=== PATIENT | male | born 1965 | race Caucasian/White ===

== ENCOUNTER → 2021-01-03 07:47 | Outpatient (CLI) | payer BC, SELFPAY ==
--- NOTE | ~2021-01-03 | MR_ITS ---
EXAMINATION: CT shoulder RT w con, Additional imaging MR DATE: 01/03/2021 10:10 INDICATION: Strain of tendon of the right rotator cuff. TECHNIQUE: 1. Magnetic resonance imaging (MRI) of the right shoulder was attempted following intra-articular lorena olinium contrast injection and without intravenous contrast. Details of the glenohumeral joint inject ion have been dictated separately. Sequences included T1-weighted localizer images as well as axial T2-weighted FS FSE and T1-weighted FS FSE. At this point the study was terminated at the patient's re quest due to claustrophobia. The coronal oblique, sagittal and ABER (abduction external rotation) sandy ging of the shoulder was not obtained. 2. Following termination of the MR examination, the patient was transferred to the CT scanner and hig h resolution computed tomography (CT) of the right shoulder was performed without intravenous contras t but with intra-articular iodinated contrast which is a component of the standard without intra mixt ure utilized for the attempted MR arthrogram. Additional sagittal and coronal reconstructions were pe rformed. Automated exposure control and iterative reconstruction technique were employed. The dose-le ngth product was 632.13 mGy-cm. COMPARISON: None FINDINGS: Evaluation on the MR portion of the examination is limited by the absence of sagittal, coronal and AB ER images. The CT imaging is limited due to relatively small amount of residual intra-articular contr ast due to resorption during of the contrast occurring during the MR portion of the examination and t he intervening time prior to CT imaging. Interpretation reflects combination of findings on both the MR and CT images. Alignment is normal. Normal variant unfused meso acromial os. Minimal acromioclavicular osteoarthriti s. Normal marrow signal with no evident reactive edema, fracture or pathologic marrow replacing proce ss. Normal anterosuperior sublingual foramen. Contrast extends into a linear superior, anterior to po sterior tear of the glenoid labrum (SLAP tear) beginning anteriorly at the 1:00 position and extendin g posteriorly to the 9:00 position. Glenohumeral cartilage appears normal. There is suggestion of mil d infraspinatus and supraspinatus tendinopathy without definitive tear although sensitivity for small tear is limited due to the premature termination of this study with absence of multiple planes of im aging. The subscapularis and teres minor tendons appear normal with evaluation only minimally limited as these tendons are suspected primarily on the obtained axial imaging. No asymmetric muscular atrop hy of the right rotator cuff or shoulder girdle. Long head of the biceps tendon appears normal with s ensitivity decreased along the intra-articular portion of the tendon. No abnormal fluid signal in the subacromial/subdeltoid bursa to suggest bursitis. Visualized portions of the right lung are clear. IMPRESSION: 1. Significantly limited study due to early termination of the MR portion of the study due to claustr ophobia prior to obtaining sagittal, coronal and lower ABER imaging. Subsequent attempted rescue CT a rthrogram limited by relative paucity of residual intra-articular contrast. 2. SLAP tear of the superior to posterior glenoid labrum. 3. Mild supraspinatus and infraspinatus tendinopathy without discrete rotator cuff tear although sens itivity for small mild tears both tendons is significantly limited by the incomplete imaging as susi led above. 4. Normal variant unfused meso acromial os acromiale. Reviewed, dictated and finalized at location [facility]. IMPRESSION: 1. Significantly limited study due to early termination of the MR portion of th e study due to claustrophobia prior to obtaining sagittal, coronal and lower AB ER i
--- NOTE | ~2021-01-03 | XR_ITS ---
XR fl inj shoulder RT - MR/CT DATE: 01/03/2021 08:44 INDICATION: Right shoulder pain TECHNIQUE: The purpose of the procedure, technique and potential complications were discussed with th e patient. The patient verbalized understanding and gave consent. Timeout procedure confirmed proper patient, procedure and side. The skin anterior to the right shoulder was prepared with sterile Betadine. Sterile drape was applied . 1% lidocaine local anesthetic was administered to the skin and underlying subcutaneous tissues. A spinal needle was introduced percutaneously into the glenohumeral joint space using fluoroscopy for guidance. 12 cc mixed diluted gadolinium and Omnipaque and local anesthetic was injected into the joint space u nder fluoroscopic guidance to confirm intra-articular position. A single spot AP exposure was made to confirm intra-articular position of the contrast material. The patient tolerated the procedure well. No complication was noted. IMPRESSION: Successful percutaneous intra-articular injection of mixed gadolinium/Omnipaque contrast material at the right glenohumeral joint Reviewed, dictated and finalized at [facility]. Reviewed, dictated and finalized at location [facility]. IMPRESSION: Successful percutaneous intra-articular injection of mixed gadolini um/Omnipaque contrast material at the right glenohumeral joint
== END ==
PROVIDERS: PCP Internal Medicine
DX: S46.011A Strain of muscle(s) and tendon(s) of the rotator cuff of right shoulder, initial encounter (principal); S43.431A Superior glenoid labrum lesion of right shoulder, initial encounter; X58.XXXA Exposure to other specified factors, initial encounter
CPT/HCPCS: 23350; 73201; 77002; Q9966

== ENCOUNTER 2022-02-28 15:39 | Outpatient (CLI) | payer BC, SELFPAY ==
[2022-02-28 18:47] LABS: Basophils Absolute Auto 0.1 K/mm3 (0.0-0.1); Basophils Percent Auto 0.8 % (0.2-1.2); Eosinophils Absolute Auto 0.3 K/mm3 (0-0.3); Eosinophils Percent Auto 2.4 % (0-4.4); Hematocrit 56.5 % (42.0-52.0); Hemoglobin 18.8 g/dL (14.0-18.0); Immature Granulocyte Absolute 0.04 K/mm3 (0.00-0.031); Immature Granulocyte Percent A 0.3 % (0-0.5); Lymphocytes Absolute Auto 2.75 K/mm3 (0.9-3.2); Lymphocytes Percent Auto 23.1 % (18.3-44.2); Mean Corpuscular HGB Conc 33.3 g/dl (32-36); Mean Corpuscular Hemoglobin 29.5 pg (26-34); Mean Corpuscular Volume 88.6 fl (80-100); Mean Platelet Volume 10.3 fl (7.4-10.4); Monocytes Absolute Auto 1.1 K/mm3 (0.1-0.6); Monocytes Percent Auto 9.4 % (2.6-8.5); Neutrophils Absolute Auto 7.6 K/mm3 (1.3-6.7); Platelet Count Result 244 k/mm3 (150-375); Red Blood Count 6.38 M/mm3 (4.6-6.20); Red Cell Distribution Width 15.2 % (11.5-14.5); White Blood Count 11.9 K/mm3 (4.5-10.0)
[2022-02-28 19:04] LABS: Alanine Aminotransferase 36 U/L (6-50); Albumin Level 4.6 g/dL (3.5-5.1); Alkaline Phosphatase 101 U/L (38-126); Anion Gap 13 mmol/L (8-16); Aspartate Amino Transferase 49 U/L (17-59); Bilirubin,Total 0.7 mg/dL (0.2-1.3); Blood Urea Nitrogen 21 mg/dL (9-20); Calcium 10.1 mg/dL (8.4-10.2); Carbon Dioxide 27 mmol/L (22-30); Chloride 101 mmol/L (98-107); Cholesterol 145 mg/dL (0-200); Estimated Glomerular Filt Rate > 60; Glucose 137 mg/dL (65-110); HDL Direct 34 mg/dL; Potassium 4.2 mmol/L (3.4-5.0); Sodium 141 mmol/L (137-145); Triglycerides 204 mg/dL (<150)
[2022-02-28 19:16] LABS: LDL Cholesterol Direct 79 mg/dL
[2022-02-28 19:18] LABS: Creatinine Urine 199.8 mg/dL
[2022-02-28 19:28] LABS: Prostate Specific Antigen 1.3 ng/mL (< OR = 4.0)
[2022-02-28 19:31] LABS: Hemoglobin A1C 7.5 % (<5.7)
[2022-02-28 19:51] LABS: MALB Creatinine Ratio 166.6 mg/g (0-30); Microalbumin Urine Random 332.8 mg/L (0-16.7)
== END 2022-02-28 15:40 | disposition home or self-care (01) ==
LOC: ANHGOSHLAB 15:41
PROVIDERS: PCP Internal Medicine; Visit Provider Internal Medicine
DX: E11.51 Type 2 diabetes mellitus with diabetic peripheral angiopathy without gangrene (principal); Z12.5 Encounter for screening for malignant neoplasm of prostate
CPT/HCPCS: 36415; 80053; 80061; 82043; 83036; 84153; 85025; G0103

== ENCOUNTER 2024-09-19 00:50 | Day surgery (SDC) | payer BC, SELFPAY ==
[2024-09-15 08:53] VITALS: BMI 29.3
--- OUTSIDE RECORDS SUMMARY | 2024-09-19 00:53 | XMS_ITS | Encounter Summary ---
Author Organization [facility] Address [address] [place] [address] Phone Care Team Providers Care Preparation Department Supervisor Name Role Phone Jet Beck MD Primary Care Provider [phone] Jim Archer DO Primary Care Provider Reason for Visit * Reason Comments Medication Refill Encounter Details Date Type Department Care Team (Late st Contact Info) Description 11/06/2021 Refill [facility] [address] [place] [id number] Jet Beck MD [address] [id number] Medication Refill Social History Tobacco Use Types Packs/Day Years Used Date Smoking Tobacco: Former Cigarettes 1 30 Smokeless Tobacco: Never Alcohol Use Standard Drinks/Week Comments Never 0 (1 standard drink = 0.6 oz pur e alcohol) AUDIT-C Answer Date Recorded Frequency of Alcohol Consumption Never 12/19/2018 Average Number of Drinks Not on file 019 Frequency of Binge Drinking Not on file 11/24 PHQ-2 Answer Date Recorded Total Score - Questions 1-9 0 01/24 Sex and Gender Information Value Date Recorded Sex Assigned at Not on file Legal Sex Male 11:07 PM CDT Gender Identity Not on file Sexual Orientation Not on file documented as of this encounter Miscellaneous Notes * Telephone Encounter - Sonali Cardenas RMA - 11/08/2021 1:02 PM CDT lvm * Telephone Encounter - Gisela Church RN - 11/07/2021 1:44 PM CDT Medication failed the protocol, provider to review and approve the medication order if appropriate. Requested Prescriptions Pending Prescriptions Disp Refills atorvastatin (LIPITOR) 40 MG Tablet [Pharmacy Med Name: Atorvastatin Calcium 40 MG Oral Tablet] 90 Tablet 0 Sig: Take 1 tablet by mouth once daily Hmg CoA Reductase Inhibitors Protocol Failed - 11/06/2021 3:53 PM Failed - Lipid panel in past 12 months LDL Date Value Ref Range Status 05/10/2021 50 0 - 130 mg/dL Final Passed - Visit with relevant provider in past 12 months or upcoming 90 days Recent Visits Date Type Provider Dept 05/10/21 Office Visit Jet Beck MD [facility] 04/14/21 Office Visit Marika Alejandra APRN, CNP [facility] 04/08/21 Office Visit Marika Alejandra APRN, [facility] 04/05/21 Office Visit Marika Alejandra APRN, [facility] 02/18/21 Office Visit Jet Beck MD [facility] Showing recent visits within past 365 days and meeting all other requirements Future Appointments No visits were found meeting these conditions. Showing future appointments within next 90 days and meeting all other requirements documented in this encounter Plan of Treatment Not on file documented as of this encounter Visit Diagnoses Diagnosis Pure hypercholesterolemia documented in this encounter Additional Health Concerns Assessment Noted Time PHQ-9 Depression Total Score: 0 02/19/20 8:03 AM CDT documented as of this encounter Care Teams Preparation Department Supervisor Relationship Specialty Start Date End Date Jet Beck MD [address] [address] PCP - General Family Medicine 02/18/21 03/17/22 Jim Archer DO [facility] [facility] [place] [address] PCP - General Internal Medicine 03/18/22 documented as of this encounter
--- OUTSIDE RECORDS SUMMARY | 2024-09-19 00:53 | XMS_ITS | Referral Summary ---
Author Organization [facility] Building A Address [address] [place] [address] Care Team Providers Care Tube Depatcher Name Role Phone Ana Talavera MD Primary Care Provider Encounters Date Type Department Care Team Description 09/12/2024 Orders Only [place] [facility] [address] [place] [phone] Primitivo Martinez MD PVD (peripheral vascular disease) (Primary Dx); Bilateral carotid bruits 09/12/2024 10:00 AM CDT Office Visit [place] [facility] [address] [place] [phone] Ricardo De La Vega NP Peripheral vascular disease (Primary Dx); PSVT (paroxysmal supraventricular tachycardia) (CMS/HCC) (HCC); Primary hypertension; Mixed hyperlipidemia 09/12/2024 9:00 AM CDT Ancillary Procedure [place] [facility] [address] [place] [phone] Atherosclerosis of [place] arteries of extremities with intermittent claudication, bilateral legs 09/05/2024 Telephone [facility] G[facility] at [place] [address] [place] [address] Jagruti Espinal MA from Last 3 Months Allergies Active Allergy Reactions Criticality Noted Date Comments Other Rash Medium 01/03/2018 metal Medications blood glucose diagnostic (ONETOUCH VERIO) strip Use to test blood sugars 3 times daily. 100 each 019 Active Additional Information Patient not taking.Reported on 09/12/2024 lancets (ONETOUCH DELICA LANCETS) 30 gauge misc Use to test blood sugars 3 times daily. 100 each 019 Active glimepiride (AMARYL) 2 mg tablet Take 1 tablet (2 mg total) by mouth 2 (two) times a day 60 tablet Active Additional Information Patient not taking.Reported on 09/12/2024 insulin degludec (TRESIBA) 200 unit/mL (3 mL) insulin penIndications:Terri betes mellitus without complication (HCC) Inject 44 units up to 60 units max dose under skin once daily. 3 pen Active famotidine (PEPCID) 20 mg tablet Take 1 tablet (20 mg total) by mouth 2 (two) times a day Active atorvastatin (LIPITOR) 40 mg tablet Take 1 tablet (40 mg total) by mouth daily Active NovoFine Plus 32 gauge x 1/6 needle USE 1 NEW PEN NEEDLE TWICE DAILY WITH INSULIN 021 Active aspirin 81 mg enteric coated tablet Take 1 tablet (81 mg total) by mouth daily Active metFORMIN XR (GLUCOPHAGE XR) 500 mg 24 hr tabletIndications: Uncontrolled type 2 diabetes mellitus with hyperosmolarity without coma, with long-term current use of insulin (HCC) Take 2 tablets by oral route in AM and 2 tabs in PM. 120 tablet 023 Active metoprolol (LOPRESSOR) 100 mg tablet Take 1 tablet by mouth twice daily 180 tablet 3 024 Active tirzepatide (Mounjaro) 10 mg/0.5 mL pen injectorIndication s:type 2 diabetes mellitus Inject 0.5 mL (10 mg total) under the skin every 7 days Active lisinopriL (PRINIVIL,ZESTRIL) 40 mg tablet TAKE 1 TABLET DAILY 90 tablet 3 025 Active lisinopriL (PRINIVIL,ZESTRIL) 40 mg tablet Take 1 tablet (40 mg total) by mouth daily 90 tablet 3 024 2024 Discontinued Active Problems Problem Noted Date Diagnosed Date Mixed hyperlipidemia 01/18/2024 Vitamin D deficiency 11/25/2022 Sorethroat 07/17/2018 Assessment & Plan (07/17/2018 4:41 PM OPHTHALMOLOGIST RETINA SPECIALIST): Patient complains of sore throat for few days strep test was positive patient is given Augmentin 875 twice a day x7 days. Also supportive care is recommended meaning throat lozenges Tylenol. Diabetes mellitus without complication 9 Assessment & Plan (07/17/2018 4:43 PM OPHTHALMOLOGIST RETINA SPECIALIST): Diabetes not controlled will get a hemoglobin HgbA1c is now due. Patient's following his glucometer reports improvement in his glucose levels. Peripheral vascular disease 01/07/2018 Assessment & Plan (07/09/2018 1:59 PM OPHTHALMOLOGIST RETINA SPECIALIST): Patient advised me saw his intervention media sales representative this morning regarding his PA D is advised continue use his walking is exercise method to keep his vascular maximum potential. Patient is a numbness in his feet secondary to PVD. Assessment & Plan (04/06/2018 4:24 PM CDT): Peripheral vascular disease managed by Cardiology . Patient's stents in his legs. He did help him Assessment & Plan (01/07/2018 8:56 AM CDT): Patient stent placement left lower extremity June 2017 this did improve his leg pain. Patient's stop smoking approximately [address] angiogram for lower extremities January 19, 2018 [facility] . Patient has a follow-up visit in 7 day with intervention media sales representative. Uncontrolled type 2 diabetes mellitus with hyperosmolarity without coma, with long-term current use of insulin 01/05/2018 Assessment & Plan (11/25/2022 11:15 AM CDT): Last A1C Lab Results Component Value Date HGBA1C 10.6 (H) 11/17/2022 Not well controlled Will switch to Mounjaro Low carb diet Continue current medication Assessment & Plan (07/09/2018 1:58 PM OPHTHALMOLOGIST RETINA SPECIALIST): Patient's diabetes is improved his HgbA1c is changed from 10.5 to 8.7 in a matter of 3 months. Patient advised he has a approximately 50% reduction risk for stroke and heart attack from where he was 3 months ago patient is still in the not at goal which is get his HgbA1c to least 7.0. Is presently taking 44 units of Tresiba /basal insulin., SGOT 2 product /Strgaltro 15mg, Victoza 1.8 mcg daily metformin and glimepiride.. At this time I would like for this patient's see shuttle buggy operator Anika Lawrence at [facility] placement of the freestyle Dane continues glucometer under diagnosis of a professional class. Explain to him I will get readings after these warnings 2 weeks in discussed were we need to go from here he should anticipate he will have referral back to the shuttle buggy operator to make adjustments that will not involving insulin always. Also advised the patient utilize his cell phone to trach is steps throughout the day. Assessment & Plan (04/06/2018 4:29 PM CDT): Patient advised me that a better control using tresiba basal insulin as compared other forms of basal insulin which were glargine. His glucometer readings 7 day 14 and 30 day not good 227, 220, 241. Samples of Tresiba given Rx sent to the pharmacy patient take 40 units daily. Emphasized again for this patient get an see a shuttle buggy operator. Assessment & Plan (01/07/2018 8:48 AM CDT): This is a new patient to me he is 52 years old has been diabetic 17 years she has been on insulin approximately 1 year. Patient change primary care physician. Dr. Zeferino Heredia was previous primary care physician who has moved to a new office in things have not gone smoothly office staff that previous office. Patient is not aware of his hemoglobin HgbA1c he informs me he had lab done about a month ago with [email or web address]. According to the information given us he is on 24 units of basal insulin daily along with metformin 2000 mg per day glimepiride, Victoza 1.8 daily glimepiride 2 mg b.i.d.. Request for release of records from [facility] has been may is no report received 7 days, I will proceed with getting updated hemoglobin Hgb A1c, fructosamine , BMP, lipid and possible C-peptide. Patient referred to shuttle buggy operator. See this patient about 4 weeks. Contact with and (suspected) exposure to other viral communicable diseases 12/31/2017 Assessment & Plan (01/05/2018 7:17 PM CDT): Hepatitis C antibody will be ordered as recommended by CDC. Eliazar dominguez 07/18/2017 BMI 31.0-31.9,adult 05/03/2017 Assessment & Plan (11/25/2022 11:14 AM CDT): Body mass index is 31.52 kg/m . BMI Follow-up includes: nutrition counseling, exercise counseling and education provided. Left leg pain 05/03/2017 Assessment & Plan (01/05/2018 7:25 PM CDT): Patient's confirm PA D has stents placed in his leg seen is a recently had a follow-up angiogram done in the past 2 weeks this angiogram was abnormal. He has an appointment coming up in the next 7 days with the intervention media sales representative . Patient on Effient and simvastatin 20 mg daily. Assessment & Plan (05/03/2017 11:53 AM OPHTHALMOLOGIST RETINA SPECIALIST): Holding call left lower extremity duplex ordered office today to which plan of care will follow-up on results of testing. An addendum will be created at that point after we discuss over the phone with our plan is based upon results. Patient was in agreement with her plan of care and we will follow up with him in the next few hours regarding management Healthcare maintenance 12/19/2016 Medication management 12/19/2016 NAFLD (nonalcoholic fatty liver disease) 017 Adiposity 08/31/2016 Overview (11/17/2016): Obesity PSVT (paroxysmal supraventricular tachycardia) ( CMS/HCC) 08/31/2016 Overview (11/17/2016): SVT - Supraventricular tachycardia Primary hypertension 08/31/2016 Overview (11/17/2016): HTN Assessment & Plan (11/25/2022 11:14 AM CDT): Goal BP <130/80 Well controlled Continue current prescribed medication at current dose Encouraged low salt diet Assessment & Plan (07/09/2018 2:01 PM OPHTHALMOLOGIST RETINA SPECIALIST): Hypertension is unchanged. Continue current treatment regimen. Dietary sodium restriction. Weight loss. Regular aerobic exercise. Continue current medications. Blood pressure will be reassessed at the next regular appointment. Assessment & Plan (04/06/2018 4:21 PM CDT): Hypertension is unchanged. Dietary sodium restriction. Weight loss. Regular aerobic exercise. Continue current medications. Blood pressure will be reassessed at the next regular appointment. Assessment & Plan (01/07/2018 9:03 AM CDT): Blood pressure well controlled on present medication patient is tolerating medications at this time will continue present therapy. Assessment & Plan (05/03/2017 11:41 AM OPHTHALMOLOGIST RETINA SPECIALIST): Stable. Pt was advised of continuing heart healthy DASH diet, increase exercise as tolerated, and continuing to monitor for any lower leg edema, headaches, changes in vision, or facial flushing. Continue ASA and anti-hypertensives as prescribed. Dyslipidemia 08/31/2016 Overview (11/17/2016): Dyslipidemia Assessment & Plan (11/25/2022 11:14 AM CDT): Lab Results Component Value Date LDLCALC 54 11/17/2022 LDL goal <70 No side effects of prescribed medication Continue statin Assessment & Plan (01/07/2018 9:04 AM CDT): Lipid profile reviewed from 2017 will get update lipid profile on next visit. Assessment & Plan (05/03/2017 11:42 AM OPHTHALMOLOGIST RETINA SPECIALIST): Continue aspirin therapy daily along with Zocor and heart healthy diet. Patient is getting evaluated for presence of DVT in left lower extremity to which the diagnosis was considered as a risk factor for development of a DVT. Resolved Problems Problem Noted Date Diagnosed Date Resolved Date Type 2 diabetes mellitus wit h stage 2 chronic kidney disease, without long-term current use of insulin 08/31/2016 04/06/2018 Overview (11/17/2016): Diabetes Assessment & Plan (04/06/2018 4:23 PM CDT): Patient advised me that a better control using tresiba basal insulin as compared other forms of basal insulin which were glargine. His glucometer readings 7 day 14 and 30 day not good 227, 220, 241. Samples of Tresiba given Rx sent to the pharmacy patient take 40 units daily. Emphasized again for this patient get an see a shuttle buggy operator. Assessment & Plan (05/03/2017 11:42 AM OPHTHALMOLOGIST RETINA SPECIALIST): Continue with current diabetes medication. High risk of clot due to diabetic state however and this diagnosis was considered office today and overall management. Social History Tobacco Use Types Packs/Day Years Used Date Smoking Tobacco: Former Cigarettes 1 25 Smokeless Tobacco: Never Tobacco Cessation:Counseling Given: Not Answered Alcohol Use Standard Drinks/Week Comments No 0 (1 standard drink = 0.6 oz pur e alcohol) PHQ-2 Answer Date Recorded PHQ-2 Total Score (If total score is 3 or more points, staff should administer the PHQ-9) 0 11/17/2022 Sex and Gender Information Value Date Recorded Sex Assigned at Not on file Legal Sex Male 1:06 PM OPHTHALMOLOGIST RETINA SPECIALIST Gender Identity Not on file Sexual Orientation Not on file Last Filed Vital Signs Vital Sign Reading Time Taken Comments Blood Pressure 129/88 09/12/2024 9:31 AM CDT Pulse 83 09/12/2024 9:31 AM CDT Temperature 36.1 C (96.9 F) 11/17/2022 10:19 AM CDT Respiratory Rate 16 09/12/2024 9:31 AM CDT Oxygen Saturation 96% 09/12/2024 9:31 AM CDT Inhaled Oxygen Concentration - - Weight 96.2 kg (212 lb) 09/12/2024 9:31 AM CDT Height 180.3 cm (5' 11 ) 01/18/2024 8:15 AM CDT Body Mass Index 29.57 01/18/2024 8:15 AM CDT Plan of Treatment Not on file Medical Devices Implanted Type Area Sales Lead Generator Device Identifier Shelf Expiration Date Model / Serial / Lot Stent Endoprosthesis [employer] [employer]ahn Heparin L15 Cm L120 Cm Od6 Mm Odsec6 Fr Superficial Femoral Artery Iliac Radiopaque Sterile Latex Free Accepts .014/.018 In Guidewire 4.8-5.5 Mm Vessel - [id number] Implanted:Qty: 1 on 07/04/2017 by Primitivo Martinez MD at [facility] [employer] 04/13/2019 [id number] / / Stent Vascular Supera Nitinol L40 Mm L120 Cm Od5.5 Mm Odsec6 Fr Peripheral Otw Self Expandable Radiopaque Closed End Sterile Latex Free Disposable Accepts .014/.018 In [employer]wire - [id number] Implanted:Qty: 1 on 07/04/2017 by Primitivo Martinez MD at [facility] 11/22/2018 [id number] 20-P6 / / [id number] Stent Vascular Supera L60 Mm L120 Cm Od6 Mm Odsec6 Fr Peripheral - [id number] Implanted:Qty: 1 on 07/04/2017 by Primitivo Martinez MD at [facility] 07/25/2018 [id number] 20-P6 / / [id number] Procedures Procedure Name Priority Date/Time Associated Diagnosis Comments US CONNIE Schedule Routine, Read Routine (OP Routine) 09/12/2024 9:34 AM CDT Atherosclerosis of [place] arteries of extremities with intermittent claudication, bilateral legs HEMOGLOBIN A1C Routine 11/17/2022 12:11 PM CDT Uncontrolled type 2 diabetes mellitus with hyperosmolarity without coma, with long-term current use of insulin (HCC) EGFR Routine 11/17/2022 12:01 PM CDT Uncontrolled type 2 diabetes mellitus with hyperosmolarity without coma, with long-term current use of insulin (HCC) LIPID PANEL Routine 11/17/2022 12:01 PM CDT Dyslipidemia Uncontrolled type 2 diabetes mellitus with hyperosmolarity without coma, with long-term current use of insulin (HCC) PSA SCREEN Routine 11/17/2022 12:01 PM CDT Screening for prostate cancer ALBUMIN CREATININE RATIO, URINE Routine 11/17/2022 11:49 AM CDT Uncontrolled type 2 diabetes mellitus with hyperosmolarity without coma, with long-term current use of insulin (HCC) DIABETES FOOT EXAM Routine 05/03/2017 DIABETES EYE EXAM Routine 07/22/2016 from Last 3 Months or Most Recently Relevant to Health Maintenance Results * US CONNIE (09/12/2024 9:34 AM CDT) Anatomical Region Laterality Modality Vascular N/A Ultrasound 09/12/2024 9:00 AM CDT Narrative 09/12/2024 12:54 PM CDT [place] [facility] [address] [place] [address] Ankle Brachial Index Report Patient Name: SVETLANA ROBERTS N : 1965 (58y 11m) Gender: M Study Date: 09/12/2024 09:00:00 AM Application Programmer Analyst: Order Provider: PRIMITIVO MARTINEZ Quality: Adequate Ref Provider: PRIMITIVO MARTINEZ PROCEDURES: Arterial Report: A bilateral extremities ankle/brachial index was performed. INDICATIONS: I70.213 Atherosclerosis of [place]oul[place] arteries of extremities with intermittent claudication, bilateral legs. CONCLUSIONS: 1. No evidence arterial insufficiency at rest in either lower extremity with ankle-brachial index of 1.07 on the right and 1.06 on the left. 2. Biphasic to triphasic waveform at the ankle bilaterally. 3. Results improved on the right when compared to prior study in September 2023. FINDINGS: Electronically Signed By: Primitivo Martinez MD 09/12/2024 12:34:54 PM CDT Procedure Note Primitivo Martinez MD - 09/12/2024 [place] [facility] [address] [place] [address] Ankle Brachial Index Report Patient Name: SVETLANA ROBERTS N : 1965 (58y 11m) Gender: M Study Date: 09/12/2024 09:00:00 AM Application Programmer Analyst: Order Provider: PRIMITIVO MARTINEZ Quality: Adequate Ref Provider: PRIMITIVO MARTINEZ PROCEDURES: Arterial Report: A bilateral extremities ankle/brachial index wasperformed. INDICATIONS: I70.213 Atherosclerosis of [place]oul[place] arteries of extremities withintermittent claudication, bilateral legs. CONCLUSIONS: 1. No evidence arterial insufficiency at rest in either lower extremitywith ankle-brachial index of 1.07 on the right and 1.06 on the left. 2. Biphasic to triphasic waveform at the ankle bilaterally. 3. Results improved on the right when compared to prior study in September2023. FINDINGS: Electronically Signed By: Primitivo Martinez MD 09/12/2024 12:34:54 PM CDT us Primitivo Martinez MD G US PROCEDURES Final Result * (ABNORMAL) Hemoglobin A1c (11/17/2022 12:11 PM CDT) Hgb A1C 10.6(H) 4.0 - 5.6 % [facility] Estimated Average Glucose 258 mg/dL [facility] Comment: The ADA recommends reporting an estimated Average Glucose (eAG) with all Hemoglobin A1c results using the equation derived from a study of 507 normal and diabetic adults. Minority populations were underrepresented and children were not included. (Diabetes Care 31:5279-6411, 2008). The eAG is not equivalent to a fasting glucose. Blood 11/17/2022 12:1 1 PM CDT 11/17/2022 12:11 PM CDT Ana Talavera MD LAB BLOOD ORDERABLES Fi nal Result [facility] [address] [place] [address] * eGFR (11/17/2022 12:01 PM CDT) eGFR 108 mL/min/1. 73 m2 [facility] BO Comment: Interpretive Data Reference Interval Normal >/= 90 mL/min/1.73m2 Mildly decreased* 60 - 89 mL/min/1.73m2 Mildly to moderately decreased 45 - 59 mL/min/1.73m2 Moderately to severely decreased 30 - 44 mL/min/1.73m2 Severely decreased 15 - 29 mL/min/1.73m2 Kidney Failure < 15 mL/min/1.73m2 *Relative to young adult level Estimated glomerular filtration rate is determined by the 2020 CKD-EPI equation recommended by the National Kidney Foundation (A Unifying Approach to GFR Estimation: Recommendations of the NKF-ASK Task Force on Reassessing the Inclusion of Race in Diagnosing Kidney Disease, JASN 202). The CKD-EPI equation should not be used for patients with unstable renal function and has not been validated in children and those over 70. Current interpretive data was last reviewed 2021. Blood 11/17/2022 12:0 1 PM CDT 11/17/2022 12:01 PM CDT Ana Talavera MD LAB BLOOD ORDERABLES Fi nal Result Performing Organization Address [facility] Co [place] Phone [place] [address] [facility] [employer] [place], [place] [id number] * PSA screen (11/17/2022 12:01 PM CDT) PSA-Total 1.10 <=3.90 ng/mL [facility] BO Comment: Interpretive Data AGE SEX REFERENCE INTERVAL 0 minutes-150 years Female None 0 minutes-49 years Male None 50-59 years Male 0-3.90 60-69 years Male 0-5.40 70-79 years Male 0-6.20 80-150 years Male 0-6.20 The Peace PSA Total assay procedure was used. Results from different manufacturers or methods may not be comparable. Serial testing should be performed using the same method. Current interpretive data last revised 21. Blood 11/17/2022 12:0 1 PM CDT 11/17/2022 12:01 PM CDT Ana Talavera MD LAB BLOOD ORDERABLES Fi nal Result Performing Organization Address [facility] Co de Phone [place] [address] [facility] [place] [address] * (ABNORMAL) Lipid panel (11/17/2022 12:01 PM CDT) Cholesterol 122 30 - 199 mg/dL [facility] BO Comment: Interpretive Data Ages < or = 19 years Acceptable: <170 mg/dL Borderline high: 170-199 mg/dL High: >or= 200 mg/dL Ages > or = 20 years Desirable: <200 mg/dL Borderline high: 200-239 mg/dL High: >or= 240 mg/dL Literature References: 1. Expert Panel on Integrated Guidelines for Cardiovascular Health and Risk Reduction in Children and Adolescents. Pediatrics 2011;128:S213 2. NCEP Expert Panel. Circulation 2004;110:227 Current Interpretive Data was last revised on 2018. Triglycerides 194(H) <=149 mg/dL [facility]CI BO Comment: Interpretive Data Ages < or = 9 years Acceptable: <75 mg/dL Borderline high: 75-99 mg/dL High: >or= 100 mg/dL Ages 10 to 20 years Acceptable: <90 mg/dL Borderline high: 90-129 mg/dL High: >or= 130 mg/dL Ages > or = 20 years Desirable: <150 mg/dL Borderline high: 150-199 mg/dL High: 200-499 mg/dL Very high: >or= 499 mg/dL Literature References: 1. Expert Panel on Integrated Guidelines for Cardiovascular Health and Risk Reduction in Children and Adolescents. Pediatrics 2011;128:S213 2. NCEP Expert Panel. Circulation 2004;110:227 Current Interpretive Data was last revised on 2018. HDL 29(L) >=40 mg/dL [facility] BO Comment: Interpretive Data Ages < or = 19 years Acceptable: >45 mg/dL Borderline low: 40-45 mg/dL Low: <40 mg/dL Ages > or = 20 years Desirable: >or= 60 mg/dL Low: <40 mg/dL Literature References: 1. Expert Panel on Integrated Guidelines for Cardiovascular Health and Risk Reduction in Children and Adolescents. Pediatrics 2011;128:S213 2. NCEP Expert Panel. Circulation 2004;110:227 Current Interpretive Data was last revised on 2018. LDL, calculated 54 <=129 mg/dL [facility] BO Comment: Interpretive Data Ages < or = 19 years Acceptable: <110 mg/dL Borderline high: 110-129 mg/dL High: >or= 130 mg/dL Ages > or = 20 years Optimal: <100 mg/dL Near optimal: 100-129 mg/dL Borderline high: 130-159 mg/dL High: >160 mg/dL Literature References: 1. Expert Panel on Integrated Guidelines for Cardiovascular Health and Risk Reduction in Children and Adolescents. Pediatrics 2011;128:S213 2. NCEP Expert Panel. Circulation 2004;110:227 Current Interpretive Data was last revised on 2018. Non-HDL Cholesterol 93 mg/dL [facility] BO Comment: Interpretive Data Ages < or = 19 years Acceptable: <120 mg/dL Borderline high: 120-144 mg/dL High: >145 mg/dL Ages > or = 20 years When triglycerides are >200 mg/dL, Non-HDL cholesterol is a secondary target of therapy with treatment goals that are 30 mg/dL greater than the LDL cholesterol target. Literature References: 1. Expert Panel on Integrated Guidelines for Cardiovascular Health and Risk Reduction in Children and Adolescents. Pediatrics 2011;128:S213 2. NCEP Expert Panel. Circulation 2004;110:227 Current Interpretive Data was last revised on 2018. Chol/HDL ratio 4 [facility] Blood 11/17/2022 12:0 1 PM CDT 11/17/2022 12:01 PM CDT Result [facility] Ana Talavera MD LAB BLOOD ORDERABLES Fi nal Result Performing Organization Address [facility] de Phone Number [facility]CI [address] Department [place] [address] * (ABNORMAL) Albumin Creatinine Ratio, Urine (11/17/2022 11:49 AM CDT) Albumin Ur 334.7 mg/L [facility] Comment: Interpretive Data No reference range established. Current interpretive data was last revised 2018. Creatinine Ur 90.4 mg/dL [facility] Comment: Interpretive Data No reference range established. Current interpretive data was last revised 2018. Albumin Creatinine Ratio, Ur 370(H) 1 - 29 mg/g [facility] Urine 11/17/2022 11:4 9 AM CDT 11/17/2022 12:01 PM CDT Result [facility] Ana Talavera MD LAB URINE ORDERABLES Fi nal Result Performing Organization Address [facility] de Phone Number [facility] [address] [place] [address] * DIABETES FOOT EXAM (05/03/2017) Diabetic Foot Exam Normal Result [facility] Historical Ramy [facility] Final Result * DIABETES EYE EXAM (07/22/2016) Diabetic Eye Exam Normal Comment:No diabetic retinopa thy. No macular edema. Tereza Mccann MD HEALTH MAINTENANCE Final Result from Last 3 Months or Most Recently Relevant to Health Maintenance Insurance [employer] [place] [facility] [employer] [facility] ACCESS CHOICE Advance Directives For more information, please contact: [phone] * Full Code (Latest Code Status on File) Date Activated Date Inactivated Comments 07/04/2017 10:39 AM 07/04/2017 3:41 PM Care Teams Tube Depatcher Relationship Specialty [place] [address] [address] [facility] [address] [place] [address] PCP - General Internal Medicine 11/17/22
--- OUTSIDE RECORDS SUMMARY | 2024-09-19 00:53 | XMS_ITS | CONTINUITY OF CARE DOCUMENT ---
Author Name mel leal Address Unknown Organization [facility] Office Address [address] [place] [address] [address] [place] [address] Phone [phone] Care Team Providers Care Desk Assistant Name Role Phone Willy Mcfarland MD Unavailable [phone] RESULTS Date Observation Value Provider Reference Range Interpretation Location triglyceride, serum, fasting 153 mg/dL Ирина Akins HDL cholesterol, serum 27 mg/dL Ирина Akins lipoprotein, beta, serum, point, quantitative, calculated 55 mg/dL Ирина Akins cholesterol, serum 113 mg/dL Ирина Akins alanine aminotransferase (SGPT), serum 122 1/L Ирина Akins aspartate aminotransferase (SGOT), serum 73 1/L Ирина Akins creatinine, serum 0.70 mg/dL Ирина Akins potassium, serum 4.7 mmol/L Ирина Akins sodium, serum 135 mmol/L Ирина Akins
--- OUTSIDE RECORDS SUMMARY | 2024-09-19 00:53 | XMS_ITS | Encounter Summary ---
Author Organization [facility] Address [address] [place] [address] Phone Care Team Providers Care Mobile Developer Name Role Phone Jet Beck MD Primary Care Provider [phone] Jim Archer DO Primary Care Provider Reason for Visit * Reason Comments Medication Refill Encounter Details Date Type Department Care Team (Late st Contact Info) Description 12/28/2021 Refill [facility] Family [facility] [address] [place] [address] Jet Beck MD [address] [address] Medication Refill Social History Tobacco Use Types [...] Telephone Encounter - Sonali Cardenas RMA - 12/29/2021 2:40 PM CDT Pt states he found different provider no longer patient * Telephone Encounter - Gisela Church RN - 12/29/2021 11:16 AM CDT Patient needs an appointment with PCP * Telephone Encounter - Gisela Church RN - 12/29/2021 10:41 AM CDT Medication failed the protocol, provider to review and approve the medication order if appropriate. Requested Prescriptions Pending Prescriptions Disp Refills Tresiba FlexTouch 200 UNIT/ML Solution Pen-injector [Pharmacy Med Name: Tresiba FlexTouch 200 UNIT/ML Subcutaneous Solution Pen-injector] 9 mL 2 Sig: INJECT 44 TO 60 UNITS SUBCUTANEOUSLY ONCE DAILY Not Delegated - Insulin Protocol Failed - 12/28/2021 3:26 PM Failed - This refill cannot be delegated Passed - Visit with relevant provider in past 12 months or upcoming 90 days Recent Visits Date Type Provider Dept 05/10/21 Office Visit Jet Beck MD [facility] 04/14/21 Office Visit Marika Alejandra APRN, CNP [facility] 04/08/21 Office Visit Marika Alejandra APRN, CNP [facility] 04/05/21 Office Visit Marika Alejandra APRN, [facility] 02/18/21 Office Visit Jet Beck MD [facility] Showing recent visits within past 365 days and meeting all other requirements Future Appointments No visits were found meeting these conditions. Showing future appointments within next 90 days and meeting all other requirements documented in this encounter Plan of Treatment Not on file documented as of this encounter Visit Diagnoses Diagnosis Uncontrolled type 2 diabetes mellitus with hyperosmolarity without coma, with long-term current use of insulin (HCC) documented in this encounter Additional Health Concerns Assessment Noted Time PHQ-9 Depression Total Score: 0 02/19/20 8:03 AM CDT documented as of this encounter Care Teams Mobile Developer Relationship Specialty Start Date End Date Jet Beck MD [address] [address] PCP - General Family Medicine 02/18/21 03/17/22 Jim Archer DO [address] [place] [address] PCP - General Internal Medicine 03/18/22 documented as of this encounter
--- OUTSIDE RECORDS SUMMARY | 2024-09-19 00:53 | XMS_ITS | Data Portability ---
Author Organization [facility] Ruby Ribbon, Main Office Address [address] [place] [address] Assessment No assessment recorded. Plan of Treatment Reminders Order Date Submit Date Provider Last Modified By Organization Details Last Modified Time Details Appointments None recorded. Lab glycohemogl obin, total, blood 2023 024 [email or web address] 2 [facility] (Lab), [address] [place], [address], 4 09:04:16 vitamin D3, 25-hydroxy, serum 2023 024 [email or web address] 2 [facility] (Lab), [address] [place], [address], 4 08:30:58 vitamin B12 + folate, serum or blood 2023 024 [email or web address] 2 [facility] (Lab), [address] [place], [address], 4 08:30:58 PSA, serum or plasma 2023 024 [email or web address] 2 [facility] (Lab), [address] [place], [address], 4 08:30:59 glycohemogl obin, total, blood 2023 024 [email or web address] 2 [facility] (Lab), [address] [place], [address], 4 08:30:57 lipid panel, serum 2023 024 [email or web address] 2 [facility] (Lab), [address] [place], [address], 4 08:30:58 CMP, serum or plasma 2023 024 [email or web address] 2 [facility] (Lab), [address] [place], [address], 4 08:30:58 CK (creatine kinase), total, serum 2023 024 [email or web address] 2 [facility] (Lab), [address] [place], [address], 4 08:30:58 TSH, serum or plasma 2023 024 [email or web address] 2 [facility] (Lab), [address] [place], [address], 4 08:30:58 CBC w/ auto diff 2023 024 [email or web address] 2 [facility] (Lab), [address] [place], [address], 4 08:30:58 hemoglobin A1C, fingerstick 2023 024 [facility] [address], [place], [address], 4 10:43:36 glycohemogl obin, total, blood 2022 023 [email or web address] 2 [facility] (Lab), [address] [place], [address], 4 12:39:40 hemoglobin A1C, fingerstick 2022 023 [email or web address] [address], [place], [address], 18:42:41 Referral None recorded. Procedures None recorded. Surgeries None recorded. Imaging None recorded. Medication Orders Tresiba FlexTouch U-200 insulin 200 unit/mL (3 mL) subcutaneou s pen 2023 024 [facility], [address], [place], [address], 4 11:49:59 Mounjaro 7.5 mg/0.5 mL subcutaneou s pen injector 2022 023 [email or web address] [facility], [address], [place], [address], 4 14:30:23 Mounjaro 7.5 mg/0.5 mL subcutaneou s pen injector 2022 023 [email or web address] [facility] [address], [address], [place], [address], 4 14:30:23 Patient TargetsNo targets recorded. Patient Instructions Encounter Date Encounter Id Patient Instructions Last Modified By Organization Details Last Modified Time 06/22/2023 [id number] Our hgb a1c machine is broken , still . stay on the 7.5 mg dose of mounjaro , call in three weeks we will check it here in office if machine is fixed . [email or web address] Not available 06/22/2023 12:51:22 03/25/2024 [id number] recheck BP on ow n . [email or web address] Not available 04/15/2024 16:33:55 Reason for Referral None Reported. Results Created Date Observation Date Name Description Value Unit Range Abnormal Flag Note LastModifiedBy Organization Detail LastModifiedTime 03/16/20 23 03/16/2023 hemog lobin A1C, finge rstic k HgbA1C 9.9% Not Available [address], [place], [address], 03/16/2023 18:42:30 07/31/19 24 07/31/2023 hemog lobin A1C, finge rstic k HgbA1C 7.4 Not Available [address], [place], [address], 07/31/2023 14:01:01 08/06/19 24 08/06/2023 hemog lobin A1C, finge rstic k HgbA1C 7.4 Not Available [address], [place], [address], 08/06/2023 10:27:28 01/03/20 24 01/17/2024 IRON, TIBC AND KISHOR TIN PANEL iron, total 84 mcg/d L 50-180 normal Not Available [address] [address] [place], [address], 01/17/2024 16:29:52 01/03/20 24 01/17/2024 IRON, TIBC AND KISHOR TIN PANEL iron binding capacity 323 mcg/d L_(ca lc) 250-42 5 normal Not Available [address] [place], [address], 01/17/2024 16:29:52 01/03/20 24 01/17/2024 IRON, TIBC AND KISHOR TIN PANEL % saturation 26 %_(ca lc) 20-48 normal Not Available [address] [place], [address], 01/17/2024 16:29:52 01/03/20 24 01/17/2024 IRON, TIBC AND KISHOR TIN PANEL ferritin 67 NG/mL 38-380 normal Not Available [address] [place], [address], 01/17/2024 16:29:52 01/03/20 24 01/17/2024 SOLUB LE TRANS KISHOR N [employer] TOR soluble transferrin receptor 1.18 mg/L 0.76-1 .76 Not Available [address], [address], 01/17/2024 16:29:52 01/03/20 24 01/17/2024 CBC (INCL UDES DIFF/ PLT) white blood cell count 8.5 thous and/u L 3.8-10 .8 normal Not Available [address], [address], 01/17/2024 16:29:53 01/03/20 24 01/17/2024 CBC (INCL UDES DIFF/ PLT) red blood cell count 5.89 tavo on/uL 4.20-5 .80 high Not Available [address], [address], 01/17/2024 16:29:53 01/03/20 24 01/17/2024 CBC (INCL UDES DIFF/ PLT) hemoglobin 17.1 g/dL 13.2-1 7.1 normal Not Available [address], [address], 01/17/2024 16:29:53 01/03/2001/17/2024 CBC (INCL UDES DIFF/ PLT) hematocrit 51.2 % 38.5-5 0.0 high Not Available [address], [address], 01/17/2024 16:29:53 01/03/20 24 01/17/2024 CBC (INCL UDES DIFF/ PLT) MCV 86.9 fL 80.0-1 00.0 normal Not Available [address], [address], 01/17/2024 16:29:53 01/03/20 24 01/17/2024 CBC (INCL UDES DIFF/ PLT) MCH 29.0 pg 27.0-3 3.0 normal Not Available [address], [address], 01/17/2024 16:29:53 01/03/20 24 01/17/2024 CBC (INCL UDES DIFF/ PLT) MCHC 33.4 g/dL 32.0-3 6.0 normal Not Available [address], [address], 01/17/2024 16:29:53 01/03/20 24 01/17/2024 CBC (INCL UDES DIFF/ PLT) RDW 12.6 % 11.0-1 5.0 normal Not Available [address], [address], 01/17/2024 16:29:53 01/03/20 24 01/17/2024 CBC (INCL UDES DIFF/ PLT) platelet count 193 thous and/u L 140-40 0 normal Not Available [address], [address], 01/17/2024 16:29:53 01/03/20 24 01/17/2024 CBC (INCL UDES DIFF/ PLT) MPV 10.1 fL 7.5-12 .5 normal Not Available [address], [address], 01/17/2024 16:29:53 01/03/20 24 01/17/2024 CBC (INCL UDES DIFF/ PLT) absolute neutrophils 4055 cells /uL 1500-7 800 normal Not Available [address], [address], 01/17/2024 16:29:53 01/03/20 24 01/17/2024 CBC (INCL UDES DIFF/ PLT) absolute lymphocytes 2873 cells /uL 850-39 00 normal Not Available [address], [address], 01/17/2024 16:29:53 01/03/20 24 01/17/2024 CBC (INCL UDES DIFF/ PLT) absolute monocytes 808 cells /uL 200-95 0 normal Not Available [address], [address], 01/17/2024 16:29:53 01/03/20 24 01/17/2024 CBC (INCL UDES DIFF/ PLT) absolute eosinophils 663 cells /uL 15-500 high Not Available [address], [address], 01/17/2024 16:29:53 01/03/20 24 01/17/2024 CBC (INCL UDES DIFF/ PLT) absolute basophils 102 cells /uL 0-200 normal Not Available [address], [address], 01/17/2024 16:29:53 01/03/20 24 01/17/2024 CBC (INCL UDES DIFF/ PLT) neutrophils 47.7 % normal Not Available [employer] [address], [address], 01/17/2024 16:29:53 01/03/20 24 01/17/2024 CBC (INCL UDES DIFF/ PLT) lymphocytes 33.8 % normal Not Available [address], [address], 01/17/2024 16:29:53 01/03/20 24 01/17/2024 CBC (INCL UDES DIFF/ PLT) monocytes 9.5 % normal Not Available [address], [address], 01/17/2024 16:29:53 01/03/20 24 01/17/2024 CBC (INCL UDES DIFF/ PLT) eosinophils 7.8 % normal Not Available [address], [address], 01/17/2024 16:29:53 01/03/20 24 01/17/2024 CBC (INCL UDES DIFF/ PLT) basophils 1.2 % normal Not Available [facility] [address] [place], [address], 01/17/2024 16:29:53 01/03/20 24 01/17/2024 TRANS KISHOR N transferrin 248 mg/dL 188-34 1 normal Not Available [facility] [address] , [place], [address], 01/17/2024 16:29:53 01/03/20 24 01/17/2024 HERED ITARY HEMOC HROMA TOSIS DNA MUT hereditary hemochromato sis DNA mut SEE BELOW RESUL T: HETER OZYGO US FOR THE C282Y AND H63D PATHO GENIC VARIA NTS Inter preta tion: One copy each of the C282Y and H63D patho genic varia nts in HFE gene was detec filiberto. Appro ximat rob 3%-8% of indiv idual s with a bioch emica l diagn osis of hered itary hemoc hroma tosis (HH) have this genot ype. There fore, this resul t is consi stent with a diagn osis of HH in an indiv idual with clini kaylie evide nce of HH. Howev er, this genot ype does not predi ct a diagn osis of HH in an asymp tomat ic indiv idual , as only 0.5% to 2% of indiv idual s with this genot ype will devel op sympt oms or clini kaylie evide nce of this disor stanton. Disea se diagn osis can only be made by rafael michelle of eleva filiberto iron store s. Mohan ic couns gulshan is recom samuel d to discu ss the poten tial clini kaylie impli catio ns of this resul t. Labor atory testi ng super vised and resul ts monit ored by Mika Wolf, Ph.D. , FACMG , HCLD, CGMB. DETAI LED ASSAY INFOR MATIO N: Hered itary hemoc hroma tosis (HH) is an autos omal reces sive disor stanton of iron metab olism that can resul t in iron overl oad and poten tial organ failu re. It is one of the most commo n mohan ic disor ders in indiv idual s of [place] maximus ances try, with an estim ated gerald er frequ ency of 10%. HH is cause d by patho genic varia nts in the HFE gene. Most indiv idual s with HH (60-9 0%) are homoz ygous for the C282Y patho genic varia nt. A small er perce ntage of affec filiberto indiv idual s are eithe r compo und heter ozygo us for the C282Y and H63D patho genic varia nts (3%-8 %), or homoz ygous for the H63D patho genic varia nt (appr oxima tely 1%). METHO DOLOG Y: This assay detec ts two patho genic varia nts in the HFE gene, C282Y ([place] [address] 0.2: c.845 G>A, p.Cys 282Ty r) and H63D ([place] [address] 0.2: c.187 C>G, p.His 63Asp ), that are commo nly assoc iated with HH. These varia nts are detec filiberto by multi plex- polym erase chain react ion (PCR) ampli ficat ion, follo wed by restr ictio n enzym e diges tion and capil katt elect ropho resis . LIMIT ATION S: This assay does not detec t other patho genic varia nts in the HFE gene that may be assoc iated with HH. Altho ugh rare, false posit von or false negat von resul ts may occur . All resul ts shoul d be inter prete d in the cal xt of clini kaylie findi ngs, relev ant histo ry, and other labor atory data. Healt h care provi ders, pleas e conta ct your local [facility]' mohan ic couns elor or call -GENE INFO ( [phone] ) for rosangela tance with the inter preta tion of these resul ts. This test was devel oped and its benjamín tical perfo rmanc e donavon cteri stics have been deter mined by [facility] sumit Valenciai kristen Bennett Juan Jaythong lawrence . It has not been clear ed or appro paolo by FDA. This assay has been valid ated pursu ant to the CLIA regul ation s and is used for clini kaylie purpo ses. For more infor delano gill, arnoldo e refer to http: //[facility] catbelen n.que stdia gnost ics.c om/fa q/hem ochro magaña is. (This link is being provi ded for infor matbelen nal/e ducat ional purpo ses only. ) A porti on of the testi ng was perfo rmed at [facility] . Revie wed and elana d by Viola keene testi ng super vised and resul ts monit ored by Mika Wolf, Ph.D. , FACMG , HCLD, CGMB, Elana d on 01/16 at 13:07 Not Available [facility] [address] [address] [place], [address], 01/17/2024 16:29:54 Result Notes None recorded. Problems Name Problem SNOMED Code Status Onset Date Resolution Date Notes Provider Name and Address Organization Details Recorded Time Type 2 diabetes mellitus without complication 113903541 Active Not Available [facility] 3 09:18:24 Hypertensive disorder 16862115 Active Not Available [facility] 3 09:18:24 Uncontrolled type 2 diabetes mellitus 613848586 Active 2016 Not Available [facility] 3 09:18:24 Hyperlipidemi a 21169401 Active Not Available [facility] 3 09:18:24 Essential hypertension 46276857 Active Not Available [facility] 3 09:18:25 Peripheral vascular disease 484732522 Active 2022 Phuong Smith MD [address] [place] [address], [address] [address], [place], [address] , [facility] [place] [employer] 3 11:52:39 Diabetic peripheral neuropathy 239954945 Active 2022 left foot worse than right DEJON Bautista [address], [place], [address] , [employer] [facility] [employer] 4 09:43:54 Sinusitis 58512373 Active 2023 DEJON Bautista [address], [address], [place], [address] , [employer] [facility] Ruby Ribbon 4 11:31:28 Screening for malignant neoplasm of prostate Active 2023 DEJON Bautista [address], [place], [address] , [employer] [facility] Ruby Ribbon 4 11:50:40 Obese 990652382 Active 2023 DEJON Bautista [address], [place], [address] , [employer] [facility] 4 11:51:26 Serum vitamin B12 below reference range 096658355 Active 2023 DEJON Bautista [address], [place], [address] , [employer] [facility]bon 4 13:23:52 Hematocrit above reference range 973080254 Active 2023 DEJON Bautista [address], [place], [address] , [employer] [facility] 4 13:25:17 Overweight 829833533 Active 2023 DEJON Bautista [address], [place], [address] , [employer] [facility] Ruby Ribbon 4 16:34:50 Notes:cardology , Dr. Call , stent behind left knee Problem Notes None recorded. Procedures Surgical History Date Name Laterality Status Provider Name and Address Organization Details Recorded Time Stints completed MICHELLE Benson [facility] [employer] [facility] 01/05/2023 11:25:46 Imaging Results None recorded. Procedure Notes None recorded. Medical Equipment None Reported. Allergies No known drug allergies Medications Name Sig Start Date Stop Date Status Note LastModified by Organization Details LastModified Time amoxicilli n 500 mg capsule TAKE 1 CAPSULE BY MOUTH EVERY 8 HOURS UNTIL COMPLETE 09/11 completed Not Available Not Available Not Available atorvastat in 40 mg tablet TAKE 1 TABLET DAILY active Not Available Not Available No t Available metformin 500 mg tablet 3 po in am and 2 po in pm active Not Available Not Available No t Available clindamyci n HCl 300 mg capsule TAKE 1 CAPSULE BY MOUTH EVERY 8 HOURS UNTIL COMPLETE 12/06 completed Not Available Not Available Not Available lisinopril 20 mg-hydroch lorothiazi de 12.5 mg tablet TAKE TWO TABLETS BY MOUTH ONCE DAILY FOR 30 DAYS 01/05 completed Not Available Not Available Not Available azithromyc in 250 mg tablet 2 tabs po qd x 1 day then 1 tab po qd x 4 days active Not Available Not Available No t Available glyburide 5 mg tablet 1 po daily active Not Available Not Available No t Available ibuprofen 800 mg tablet TAKE 1 TABLET BY MOUTH EVERY 6 TO 8 HOURS NEEDED FOR PAIN active Not Available Not Available No t Available metoprolol tartrate 100 mg tablet TAKE 1 TABLET BY MOUTH TWICE DAILY active Not Available Not Available No t Available glyburide 2.5 mg tablet Take 1 tablet every day by oral route. active Not Available Not Available No t Available Tamiflu 75 mg capsule Take 1 capsule twice a day by oral route. active Not Available Not Available No t Available triamcinol one acetonide 0.1 % topical cream APPLY CREAM EXTERNALL Y THREE TIMES DAILY FOR 5 DAYS 01/05 completed Not Available Not Available Not Available glimepirid e 2 mg tablet TAKE 1 TABLET BY MOUTH TWICE DAILY 12/06 completed Not Available Not Available Not Available hydrocorti sone acetate 25 mg rectal suppositor y INSERT ONE SUPPOSITO RY RECTALLY THREE TIMES DAILY FOR 14 DAYS 01/05 completed Not Available Not Available Not Available lancets check BS up to 4x/day. 01/05 completed Not Available Not Available Not Available famotidine 20 mg tablet Take 1 tablet twice a day by oral route. 09/11 completed Not Available Not Available Not Available Erin 180 mg tablet Take 1 tablet every day by oral route. 2012 active Not Available Not Available Not Avai lable simvastati n 20 mg tablet 1 po daily 01/05 completed Not Available Not Available Not Available ranitidine 150 mg tablet TAKE ONE TABLET BY MOUTH TWICE DAILY 01/05 completed Not Available Not Available Not Available metoprolol tartrate 50 mg tablet TAKE 1 TABLET BY MOUTH TWICE DAILY 01/05 completed Not Available Not Available Not Available lisinopril 20 mg-hydroch lorothiazi de 25 mg tablet Take 1 tablet every day by oral route. 2012 active Not Available Not Available Not Avai lable verapamil ER (SR) 240 mg tablet,ext ended release Take 1 tablet every day by oral route. 01/05 completed Not Available Not Available Not Available cyanocobal galicia (vit B-12) 1,[address] 1 tablet twice a day by sublingua l route for 30 days. 2023 active Not Available Not Available Not Avai lable ergocalcif ad (vitamin D2) 1,250 mcg (50,000 unit) capsule TAKE 1 CAPSULE BY MOUTH ONCE A WEEK active Not Available Not Available No t Available epinephrin e 0.3 mg/0.3 mL injection, auto-injec tor INJECT 0.3 ML INTRAMUSC ULARLY ONCE NEEDED FOR ANAPHYLAX IS FOR UP TO 1 DAY active Not Available Not Available No t Available lisinopril 40 mg tablet TAKE 1 TABLET DAILY active Not Available Not Available No t Available metformin ER 500 mg tablet,ext ended release 24 hr Take 2 tablets twice a day by oral route for 30 days. 2023 active Not Available Not Available Not Avai lable verapamil ER 240 mg 24 hr capsule,ex tended release active Not Available Not Available Not Available Asprin Ec Low Dose 81 mg tablet,del ayed release Take 1 tablet every day by oral route. 2012 active Not Available Not Available Not Avai lable metoprolol tartrate 25 mg tablet Take 1 tablet twice a day by oral route. 01/05 completed Not Available Not Available Not Available metformin ER 500 mg tablet,ext ended release 24hr (osmotic) 2 tabs bid active Not Available Not Available No t Available Byetta 5 mcg/dose (250 mcg/mL)1.2 mL subcutaneo us pen injector Inject 0.02 mL twice a day by subcutane ous route. 01/05 completed Not Available Not Available Not Available verapamil 2012 active Not Available Not Available Not Avai lable metformin ER 500 mg 24 hr tablet,ext ended release (gastric retention) 3 tabs in am and 2 tabs in the evening active Not Available Not Available No t Available Januvia 100 mg tablet TAKE ONE TABLET BY MOUTH ONCE DAILY 01/05 completed Not Available Not Available Not Available Tradjenta 5 mg tablet 1 po daily active Not Available Not Available No t Available Victoza 2-Nathan 0.6 mg/0.1 mL (18 mg/3 mL) subcutaneo us pen injector Inject 1.2mg SQ Q daily 01/05 completed Not Available Not Available Not Available ReliOn Pen [place] 32 gauge x 5/32 01/05 completed Not Available Not Available Not Available Jardiance 10 mg tablet Take 1 tablet every day by oral route. 01/05 completed made him pee all night Not Available Not Available Not Available Trulicity 1.5 mg/0.5 mL subcutaneo us pen injector INJECT 1.5 MG (1/2 ML) SUBCUTANE OUSLY ONCE A WEEK 03/16 completed Not Available Not Available Not Available Tresiba FlexTouch U-200 insulin 200 unit/mL (3 mL) subcutaneo us pen Inject 60 units every day by subcutane ous route for 90 days. 2023 active Not Available Not Available Not Avai lable Mounjaro 7.5 mg/0.5 mL subcutaneo us pen injector INJECT 7.5 MG SUBCUTANE OUSLY ONCE A WEEK 09/18 completed Not Available Not Available Not Available Mounjaro 5 mg/0.5 mL subcutaneo us pen injector INJECT 5 MG SUBCUTANE OUSLY ONCE A WEEK 09/18 completed Not Available Not Available Not Available Mounjaro 10 mg/0.5 mL subcutaneo us pen injector INJECT 10 MG ONCE WEEKLY SUBCUTANE OUSLY - NEEDS NEW COUPON active Not Available Not Available No t Available Mounjaro 2.5 mg/0.5 mL subcutaneo us pen injector INJECT 2.5 MG SUBCUTANE OUSLY ONCE A WEEK 02/28 completed Not Available Not Available Not Available Ozempic 0.25 mg or 0.5 mg (2 mg/3 mL) subcutaneo us pen injector Inject 0.5 mg SC once weekly for 4 weeks 2023 active Not Available Not Available Not Avai lable Vitals Date Recorded Body height Body mass index (BMI) Body weight Body temperature Heart rate Oxygen saturation Oxygen saturation in Arterial blood by Pulse oximetry Systolic blood pressure Diastolic blood pressure Provider Name and Address Organization Details Last Updated DateTime 3 180.34 cm 31.5 kg/m2 058775. 88 g 97 [degF] 82 /min 97 % 97 % 124 mm[Hg] 78 mm[Hg] Clara lu CMA [facility] [employer] [facility] 3 10:06:48 Date Recorded Body height Body mass index (BMI) Body weight Body temperature Heart rate Oxygen saturation Oxygen saturation in Arterial blood by Pulse oximetry Systolic blood pressure Diastolic blood pressure Provider Name and Address Organization Details Last Updated DateTime 3 180.34 cm 30.3 kg/m2 98149.5 4 g 97.3 [degF] 88 /min 95 % 95 % 132 mm[Hg] 78 mm[Hg] Nikia Rinaldi MA [facility] [employer] [facility] 3 12:24:51 Date Recorded Body height Provider Name an d Address Organization Details Last Updated DateTime 07/27/2023 180.34 cm Nikia singer MA [facility] [employer] [facility] 07/27/2023 09:23:18 Date Recorded Body height Body mass index (BMI) Body weight Body temperature Heart rate Oxygen saturation Oxygen saturation in Arterial blood by Pulse oximetry Respiratory rate Systolic blood pressure Diastolic blood pressure Provider Name and Address Organization Details Last Updated DateTime 4 180.34 cm 30 kg/m2 83269.3 6 g 97.2 [degF] 68 /min 96 % 96 % 16 /min 122 mm[Hg] 88 mm[Hg] Diana Waddell RN [facility] [employer] [facility] 4 11:44:14 Date Recorded Body height Body mass index (BMI) Body weight Body temperature Respiratory rate Heart rate Oxygen saturation Oxygen saturation in Arterial blood by Pulse oximetry Systolic blood pressure Diastolic blood pressure Provider Name and Address Organization Details Last Updated DateTime 4 180.34 cm 29.6 kg/m2 38668.5 8 g 97.1 [degF] 16 /min 74 /min 96 % 96 % 166 mm[Hg] 94 mm[Hg] Diana Waddell RN [facility] [employer] [facility] 09:14:04 Social History Question Answer Notes LastModified by Organizat ion Details LastModified Time Tobacco Smoking Status Former Smoker 1/2 PPD Clauida Roy, RMBridgette null, [facility] [employer] [facility] 01/05/2023 11:25:38 When Did You Quit Smoking? 11-15yearssi ncelastcigar ette [email or web address] Information not available 01/05/2023 Sex: Unknown Functional Status None recorded. Mental Status None recorded. Family History Relationship Description Onset Age of this Age Resolved Age Notes LastModified by Organization Details LastModified Time Mother Diabetes mellitus [email or web address] Not available 2022 11:24:44 Medical History Condition Response BLINDNESS N RHEUMATIC FEVER N KIDNEY STONES N BLADDER PROBLEMS N MRSA N OTHER # 1 N POLIO N LUNG DISEASE/DISORDER N HISTORY OF DRUG ABUSE N RADIATION / CHEMOTHERAPY N COPD N Other # 2 N BLOOD DISEASES N SURGERY N EAR OR HEARING PROBLEMS N MUMPS N SHINGLES N FEMALE PROBLEMS / INFECTIONS N DEPRESSION (INCLUDING POST ) N BOWEL PROBLEMS N FAILED BACK SYNDROME N STROKE/TIA N THYROID DISEASE N ULCERS N BENIGN PROSTATIC HYPERPLASIA N MEASLES N CERVICALGIA N TB SKIN TEST N HYPOTENSION N MYOCARDIAL INFARCTION N PARAPELGIA N OBESITY N GERD/NAUSEA N ANEURYSM N URINARY/BLADDER/KIDNEY PROBLEMS N CORONARY ARTERY DISEASE (CAD) N MENIERE'S DISEASE N Do you have Advance directive? N ADDICTION CONCERNS N ENDOMETRIOSIS N USE OF BLOOD THINNERS N SKIN PROBLEMS N EMPHYSEMA N GASTROINTESTINAL DISORDER N PERIPHERAL ARTERY DISEASE N MUSCLE,JOINT OR BONE PROBLEMS N GASTROINTESTINAL BLEEDING N BLOOD CLOTS N ASTHMA N CATARACTS N Abdominal Pain N [id number]|2024-09-19 00:53:00|2024-09-19 00:53:00|XMS_ITS|BKG DAEMON|External Medical Summaries|[id number]|" Encounter Summary Created on: September 19, 2024 Rahul Roberts III : 1965 Sex: Male Author Organization [facility] Address [address] [place] [address] Phone Care Team Providers Care Phys Therapist Name Role Phone Zeferino Heredia MD Primary Care Provider + Giovanny Vargas MD Primary Care Provider +[phone]- [phone] Giovanny Santo MD Primary Care Provider [phone] Jet Beck MD Primary Care Provider [phone] Unknown, Notinfile Primary Care Provider Unavail able nAa Talavera MD Primary Care Provider Encounter Details Date Type Department Care Team (Late st Contact Info) Description 07/11/2017 Orders Only [facility] [address] [employer] 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 Gender Identity Not on file Sexual Orientation Not on file documented as of this encounter Plan of Treatment Not on file documented as of this encounter Procedures Procedure Name Priority Date/Time Associated Diagnosis Comments SCAN - LABS 07/11/2017 documented in this encounter Results * SCAN - LABS (07/11/2017) Giovanny Vargas MD Final Resu lt documented in this encounter Visit Diagnoses Not on filedocumented in this encounter Care Teams Phys Therapist Relationship Specialty Start Date End Date Zeferino Heredia MD [address] [place] [address] PCP - General 09/22/16 01/02/18 Giovanny Vargas MD [facility] [place] [address] PCP - General Internal Medicine 01/03/18 12/14/19 Giovanny Santo MD [address] [place] [address] PCP - General Internal Medicine 12/15/19 08/15/21 Jet Beck MD 2 [facility] [address] [place] [address] PCP - General Family Medicine 08/16/21 08/15/22 Unknown, Notinfile PCP - General 08/16/22 11/16/22 [place] [address] [facility] [address] [place] [address] PCP - General Internal Medicine 11/17/22 documented as of this encounter "
--- OUTSIDE RECORDS SUMMARY | 2024-09-19 00:53 | XMS_ITS | Encounter Summary ---
Author Organization [facility] Address [address] [place] [address] Phone Care Team Providers Care Oven Tender Bagels Name Role Phone Zeferino Heredia MD Primary Care Provider + Giovanny Vargas MD Primary Care Provider [phone]- [phone] Giovanny Santo MD Primary Care Provider [phone] Jet Beck MD Primary Care Provider [phone] Unknown, Notinfile Primary Care Provider Unavail able Ana Talavera MD Primary Care Provider Encounter Details Date Type Department Care Team (Late st Contact Info) Description 07/24/2017 Orders Only [facility] [address] [place] [address] Giovanny Vargas MD [address] [place] [address] Social History Tobacco Use Types Packs/Day Years Used Date Smoking Tobacco: Former Alcohol Use Standard Drinks/Week Comments No 0 (1 standard drink = 0.6 oz pur e alcohol) Sex and Gender Information Value Date Recorded Sex Assigned at Not on file 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 Gender Identity Not on file Sexual Orientation Not on file documented as of this encounter Plan of Treatment Not on file documented as of this encounter Procedures Procedure Name Priority Date/Time Associated Diagnosis Comments SCAN - LABS 07/24/2017 documented in this encounter Results * SCAN - LABS (07/24/2017) us Giovanny Vargas MD Edited Res ult - Final documented in this encounter Visit Diagnoses Not on filedocumented in this encounter Care Teams Oven Tender Bagels Relationship Specialty Start Date End Date Zeferino Heredia MD [address] [place] [address] PCP - General 09/22/16 01/02/18 Giovanny Vargas MD [address] [place] [address] PCP - General Internal Medicine 01/03/18 12/14/19 Giovanny Santo MD [address] [place] [address] PCP - General Internal Medicine 12/15/19 08/15/21 Jet Beck MD 2 [facility] [address] [place] [address] PCP - General Family Medicine 08/16/21 08/15/22 Unknown, Notinfile PCP - General 08/16/22 11/16/22 [place] [address] [facility] [address] [place] [address] PCP - General Internal Medicine 11/17/22 documented as of this encounter
--- OUTSIDE RECORDS SUMMARY | 2024-09-19 00:53 | XMS_ITS | Encounter Summary ---
Author Organization [facility] Address [address] [place] [address] Phone Care Team Providers Care Material Processor Name Role Phone Zeferino Heredia MD Primary Care Provider + Giovanny Vargas MD Primary Care Provider [phone] Giovanny Santo MD Primary Care Provider [phone] Jet Beck MD Primary Care Provider [phone] Unknown, Notinfile Primary Care Provider Unavail able Ana Talavera MD Primary Care Provider Encounter Details Date Type Department Care Team (Late st Contact Info) Description 09/07/2017 Orders Only [facility] [address] [place] [address] Giovanny Vagras MD [address] [place] [address] Social History Tobacco Use Types Packs/Day Years Used Date Smoking Tobacco: Former Alcohol Use Standard Drinks/Week Comments No 0 (1 standard drink = 0.6 oz pur e alcohol) Sex and Gender Information Value Date Recorded Sex Assigned at Not on file 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 Gender Identity Not on file Sexual Orientation Not on file documented as of this encounter Plan of Treatment Not on file documented as of this encounter Procedures Procedure Name Priority Date/Time Associated Diagnosis Comments SCAN - LABS 09/07/2017 documented in this encounter Results * SCAN - LABS (09/07/2017) Giovanny Vargas MD Final Resu lt documented in this encounter Visit Diagnoses Not on filedocumented in this encounter Care Teams Material Processor Relationship Specialty Start Date End Date Zeferino Heredia MD [address] [place] [address] PCP - General 09/22/16 01/02/18 Giovanny Vargas MD [facility] [place] [address] PCP - General Internal Medicine 01/03/18 12/14/19 Giovanny Santo MD [address] [place] [address] PCP - General Internal Medicine 12/15/19 08/15/21 Jet Beck MD 2 [facility] [address] [place] [address] PCP - General Family Medicine 08/16/21 08/15/22 Unknown, Notinfile PCP - General 08/16/22 11/16/22 [place] [address] [facility] [address] [place] [address] PCP - General Internal Medicine 11/17/22 documented as of this encounter
--- OUTSIDE RECORDS SUMMARY | 2024-09-19 00:53 | XMS_ITS | Clinical Summary ---
[facility] Organization [facility] Address [address] [place] [address] Care Team Providers Care Equipment Operating Engineer Name Role Phone Ana Talavera MD Primary Care Provider Allergies Active Allergy Reactions Criticality Noted Date [...] dose under skin once daily. 3 pen 019 Active famotidine (PEPCID) 20 mg tablet Take 1 tablet (20 mg total) by mouth 2 (two) times a day Active atorvastatin (LIPITOR) 40 mg tablet Take 1 tablet (40 mg total) by mouth daily Active NovoFine Plus 32 gauge x 1/6 needle USE 1 NEW PEN NEEDLE TWICE DAILY WITH INSULIN 06/11/2 021 Active aspirin 81 mg enteric coated [...] 07/17/2018 Assessment & Plan (07/17/2018 4:41 PM CLAIMS SPECIALIST): Patient complains of sore throat for few days strep test was positive patient is given Augmentin 875 twice a day x7 days. Also supportive care is recommended meaning throat lozenges Tylenol. Diabetes mellitus without complication 9 Assessment & Plan (07/17/2018 4:43 PM CLAIMS SPECIALIST): Diabetes not controlled will get a hemoglobin HgbA1c is now due. Patient's following his glucometer reports improvement in his glucose levels. Peripheral vascular disease 01/07/2018 Assessment & Plan (07/09/2018 1:59 PM CLAIMS SPECIALIST): Patient advised me saw his intervention aix system administrator this morning regarding his PA D is [...] angiogram for lower extremities [facility] . Patient has a follow-up visit in 7 day with intervention aix system administrator. Uncontrolled type 2 diabetes mellitus with hyperosmolarity without coma, with long-term current use of insulin 01/05/2018 Assessment & Plan (11/25/2022 11:15 AM CDT): Last A1C Lab Results Component Value Date HGBA1C 10.6 (H) 11/17/2022 Not well controlled Will switch to Mounjaro Low carb diet Continue current medication Assessment & Plan (07/09/2018 1:58 PM CLAIMS SPECIALIST): Patient's diabetes is improved his HgbA1c [...] I would like for this patient's see harness maker Anika Lawrence at [facility] placement of the freestyle Dane continues glucometer under diagnosis of a professional class. Explain to him I will get readings after these warnings 2 weeks in discussed were we need to go from here he should anticipate he will have referral back to the harness maker to make adjustments that will not involving [...] for this patient get an see a harness maker. Assessment & Plan (01/07/2018 8:48 AM CDT): [...] lab done about a month ago with [facility]. According to the information given us he is on 24 units of basal insulin daily along with metformin 2000 mg per day glimepiride, Victoza 1.8 daily glimepiride 2 mg b.i.d.. Request for release of records from [facility] has been may is no report received 7 days, I will proceed with getting updated hemoglobin Hgb A1c, fructosamine , BMP, lipid and possible C-peptide. Patient referred to harness maker. See this patient about 4 weeks. Contact with and (suspected) exposure to other viral communicable diseases 12/31/2017 Assessment & Plan (01/05/2018 7:17 PM CDT): Hepatitis C antibody will be ordered as recommended by CDC. Tinea pedis 07/18/2017 BMI 31.0-31.9,adult 05/03/2017 Assessment & Plan [...] the next 7 days with the intervention aix system administrator . Patient on Effient and simvastatin 20 mg daily. Assessment & Plan (05/03/2017 11:53 AM CLAIMS SPECIALIST): Holding call left lower extremity duplex [...] diet Assessment & Plan (07/09/2018 2:01 PM CLAIMS SPECIALIST): Hypertension is unchanged. Continue current treatment [...] therapy. Assessment & Plan (05/03/2017 11:41 AM CLAIMS SPECIALIST): Stable. Pt was advised of continuing [...] visit. Assessment & Plan (05/03/2017 11:42 AM CLAIMS SPECIALIST): Continue aspirin therapy daily along with [...] for this patient get an see a harness maker. Assessment & Plan (05/03/2017 11:42 AM CLAIMS SPECIALIST): Continue with current diabetes medication. High risk of clot due to diabetic state however and this diagnosis was considered office today and overall management. 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, bilateral legs 09/12/2024 Orders Only [facility] [address] [place] [address] [address] [place] [address] Primitivo Martinez MD PVD (peripheral vascular disease) (Primary Dx); Bilateral carotid bruits 09/05/2024 Telephone [facility] Gastroenterology at [address] [place] [address] Jagruti Espinal MA from Last 3 Months Surgical History Surgery Date Site/Laterality Comments KNEE SURGERY Medical History Medical History Date Comments Type 2 diabetes mellitus (HCC) D iabetes type 2; Comments: TAYLOR 07/28/2016 - Hypercholesterolemia High choles terol; Comments: TAYLOR 07/28/2016 - Hypertension Peripheral neuropathy Family History Medical History Relation Name Comments Other Father [place]; Cirrhosis Mother Cirrhosis; Diabetes type II Mother Diabetes me llitus type 2; Hypertension Mother Hypertension; Diabetes Other Relation Name Status Comments Father Mother Other Social History Tobacco Use Types Packs/Day Years [...] on file 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 Gender Identity Not on file Sexual Orientation Not on file Obstetrics History Last Filed Vital Signs Vital Sign Reading [...] 01/18/2024 8:15 AM CDT Plan of Treatment Health Maintenance Due Date Last Done Comments Colon Cancer Screening-Colonoscopy 1965 Hepatitis C Screening 1965 DTaP/Tdap/Td Vaccine (1 - Tdap) 10/04/1978 Hepatitis B Screening 10/04/1985 Pneumococcal vaccine <65 (1 of 2 - PCV) 10/04/1986 Dilated Eye Exam 07/22/2017 07/22/2016 Zoster Vaccine (1 of 2) 10/04/2017 Foot Exam 01/03/2019 01/03/2018, 1102/2017, 04/03/2017, Additional history exists Regular Well Visit/Exam 18-64 01/03/2019 01/03/2018 Hemoglobin A1C 05/20/2023 11/17/2022, 1212/2017, 03/28/2018 Albumin Creatinine Ratio, Urine 11/18/2023 , 01/17/2018 Depression Screening 11/18/2023 11/17/2022, 05/03/2017, 04/03/2017, Additional history exists Lipid Panel 11/18/2023 11/17/2022, 12/23, 12/04/2016, Additional history exists eGFR 11/18/2023 11/17/2022, 07/04/2017 Influenza Vaccine (#1) 2024 Prostate Cancer Screening-PSA 11/17/2024 11/17/2022 Medical Devices Implanted Type Area Astro Technician Device Identifier Shelf Expiration Date Model / Serial / Lot Stent Endoprosthesis [place] [employer] Heparin L15 Cm L120 Cm Od6 Mm Odsec6 Fr Superficial Femoral Artery Iliac Radiopaque Sterile Latex Free Accepts .014/.018 In Guidewire 4.8-5.5 Mm Vessel - [id number] Implanted:Qty: 1 on 07/04/2017 by Primitivo Martinez MD at [facility] [employer] 04/13/2019 [id number] / / Stent Vascular Supera Nitinol L40 Mm L120 Cm Od5.5 Mm Odsec6 Fr Peripheral Otw Self Expandable Radiopaque Closed End Sterile Latex Free Disposable Accepts .014/.018 In [employer]wire - [id number] Implanted:Qty: 1 on 07/04/2017 by Primitivo Martinez MD at [facility] [employer] 11/22/2018 [id number] 20-P6 / / [id number] Stent Vascular Supera L60 Mm L120 Cm Od6 Mm Odsec6 Fr Peripheral - [id number] Implanted:Qty: 1 on 07/04/2017 by Primitivo Martinez MD at [facility] [employer] 07/25/2018 [id number] 20-P6 / / [id number] Procedures Procedure Name Priority Date/Time Associated Diagnosis Comments US CONNIE Schedule Routine, Read Routine (OP Routine) 09/12/2024 9:34 AM CDT Atherosclerosis of skagway arteries of extremities with intermittent claudication, bilateral [...] AM CDT Narrative 09/12/2024 12:54 PM CDT [facility]- [facility] [address] [facility] [place] [address] Ankle Brachial Index Report Patient Name: SVETLANA ROBERTS N : 1965 (58y 11m) Gender: M Study Date: 09/12/2024 09:00:00 AM Archives Specialist: Order Provider: PRIMITIVO MARTINEZ Quality: Adequate Ref Provider: PRIMITIVO MARTINEZ PROCEDURES: Arterial Report: A bilateral extremities ankle/brachial index was performed. INDICATIONS: I70.213 Atherosclerosis of skagway arteries of extremities with intermittent claudication, bilateral [...] Procedure Note Primitivo Martinez MD - 09/12/2024 [facility] Senior [facility]- [facility] [address] [place] [address] Ankle Brachial Index Report Patient Name: SVETLANA ROBERTS N : 1965 (58y 11m) Gender: M Study Date: 09/12/2024 09:00:00 AM Archives Specialist: Order Provider: PRIMITIVO MARTINEZ Quality: Adequate Ref Provider: PRIMITIVO MARTINEZ PROCEDURES: Arterial Report: A bilateral extremities ankle/brachial index wasperformed. INDICATIONS: I70.213 Atherosclerosis of skagway arteries of extremities withintermittent claudication, bilateral legs. [...] Primitivo Martinez MD 09/12/2024 12:34:54 PM CDT Primitivo Martinez MD [facility] PROCEDURES Final Result * (ABNORMAL) Hemoglobin A1c [...] and children were not included. (Diabetes Care 31:7882-3416, 2008). The eAG is not equivalent to a fasting glucose. Blood 11/17/2022 12:1 1 PM CDT 11/17/2022 12:11 PM CDT Ana Talavera MD LAB BLOOD ORDERABLES Fi nal Result Performing Organization Address [facility] [place] [address] [place] [address] * eGFR (11/17/2022 12:01 PM CDT) eGFR [...] of Race in Diagnosing Kidney Disease, JASN 2020). The CKD-EPI equation should not be used for patients with unstable renal function and has not been validated in children and those over 70. Current interpretive data was last reviewed 2021. Blood 11/17/2022 12:0 1 PM CDT 11/17/2022 12:01 PM CDT Ana Talavera MD LAB BLOOD ORDERABLES Fi nal Result Performing Organization Address City/[facility]/ZIP [place] [address] [place] [address] * PSA screen (11/17/2022 12:01 PM CDT) [...] 1 PM CDT 11/17/2022 12:01 PM CDT us Ana Talavera MD LAB BLOOD ORDERABLES [place] [address] [address] [place] [address] * (ABNORMAL) Lipid panel (11/17/2022 12:01 PM [...] last revised on 2018. Chol/HDL ratio 4 LUCI BO Blood 11/17/2022 12:0 1 PM CDT 11/17/2022 12:01 PM CDT Ana Talavera MD LAB BLOOD ORDERABLES Fi nal Result Performing Organization Address [facility] Co de Phone Number [facility] [place] [address] [address] [facility] [place] [address] * (ABNORMAL) Albumin Creatinine Ratio, Urine (11/17/2022 11:49 AM CDT) Albumin Ur 334.7 mg/L LUCI Comment: Interpretive Data No reference range established. Current interpretive data was last revised 2018. Creatinine Ur 90.4 mg/dL [facility] Comment: Interpretive Data No reference range established. Current interpretive data was last revised 2018. Albumin Creatinine Ratio, Ur 370(H) 1 - 29 mg/g [facility] Urine 11/17/2022 11:4 9 AM CDT 11/17/2022 12:01 PM CDT Ana Talavera MD LAB URINE ORDERABLES Fi nal Result Performing Organization Address [facility] Co de Phone Number [place]CI [address] [address] [place] [address] * DIABETES FOOT EXAM (05/03/2017) Pathologist [facility] Diabetic Foot Exam Normal Result [facility] Historical [facility] Final Result * DIABETES EYE EXAM (07/22/2016) Pathologist [facility] Diabetic Eye Exam Normal Comment:No diabetic retinopa thy. No macular edema. Historical [facility] Final Result from Last 3 Months or Most Recently Relevant to Health Maintenance Insurance [facility] ANTHEM ACCESS CHOICE BLUE [employer] [place] ANTHEM ACCESS CHOICE Advance Directives For more information, please contact: [phone] * Full Code (Latest Code Status on File) Date Activated Date Inactivated Comments 07/04/2017 10:39 AM 07/04/2017 3:41 PM Care Teams Equipment Operating Engineer Relationship Specialty [place] [address] [address] PCP - General Internal Medicine 11/17/22
--- OUTSIDE RECORDS SUMMARY | 2024-09-19 00:54 | XMS_ITS | Encounter Summary ---
Author Organization [facility] Address [address] [facility] [address] [place] [address] Care Team Providers Care Recording Studio Set Up Worker Name Role Phone Zeferino Heredia MD Primary Care Provider + Zeferino Heredia MD Primary Care Provider + Giovanny Vargas MD Primary Care Provider [phone] Giovanny Santo MD Primary Care Provider [phone] Jet Beck MD Primary Care Provider [phone] Unknown, Notinfile Primary Care Provider Unavail able Ana Talavera MD Primary Care Provider Encounter Details Date Type Department Care Team (Late st Contact Info) Description 08/23/2012 Orders Only John Internal Medicine Provider, MD Tere[facility] [address] [place] [address] Social History Tobacco Use Types Packs/Day Years Used Date Smoking Tobacco: Never Assessed Sex and Gender Information Value Date Recorded Sex Assigned at Not on file 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 us Historical Provider [facility] JERICA PRUITT Final Result documented in this encounter Visit Diagnoses Not on filedocumented in this encounter Care Teams Recording Studio Set Up Worker Relationship Specialty Start Date End Date Zeferino Heredia MD [address] [place] [address] [place] [address] PCP - General 09/22/16 01/02/18 Zeferino Heredia MD [address] [place] [address] [place] [address] PCP - General 07/28/16 09/21/16 Giovanny Vargas MD [address] [place] [address] [place] [address] PCP - General Internal Medicine 01/03/18 12/14/19 Giovanny Santo MD [address] [place] [address] PCP - General Internal Medicine 12/15/19 08/15/21 Jet Beck MD 2 [facility] [address] [place] [address] PCP - General Family Medicine 08/16/21 08/15/22 Unknown, Notinfile PCP - General 08/16/22 11/16/22 [place] [address] [facility] [address] [place] [address] PCP - General Internal Medicine 11/17/22 documented as of this encounter
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
--- OUTSIDE RECORDS SUMMARY | 2024-09-19 00:54 | XMS_ITS | Encounter Summary ---
Author Organization [facility] Address [address] [place] [address] Phone Care Team Providers Care Customer Support Coordinator Name Role Phone Jim Archer Primary Care Provider Reason for Visit * Reason Comments Medication Refill Encounter Details Date Type Department Care Team (Late st Contact Info) Description 06/28/2022 Refill [facility] - Family Medicine [facility] [address] [place] [address] Jet Beck MD [address] [address] Medication Refill Social History Tobacco Use Types [...] encounter Miscellaneous Notes * Telephone Encounter - Elicia Clark RN - 06/29/2022 8:23 AM CST Medication failed the protocol, provider to review and approve the medication order if appropriate. Requested Prescriptions Pending Prescriptions Disp Refills Trulicity 1.5 MG/0.5ML Solution Pen-injector [Pharmacy Med Name: Trulicity 1.5 MG/0.5ML Subcutaneous Solution Pen-injector] 4 mL 0 Sig: INJECT 1.5 MG SUBCUTANEOUSLY ONCE A WEEK GLP-1 Agonists Protocol Failed - 06/28/2022 5:45 PM Failed - Lipid panel result on file in past 12 months LDL Date Value Ref Range Status 05/10/2021 50 0 - 130 mg/dL Final Failed - Visit with relevant provider in past 6 months or upcoming 90 days Recent Visits No visits were found meeting these conditions. Showing recent visits within past 182 days and meeting all other requirements Future Appointments No visits were found meeting these conditions. 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
--- OUTSIDE RECORDS SUMMARY | 2024-09-19 00:54 | XMS_ITS | Encounter Summary ---
Author Organization [facility] Address [address] [place] [address] Phone Care Team Providers Care Wool Washer Name Role Phone Jim Archer Primary Care Provider Reason for Visit * Reason Comments Medication Refill Encounter Details Date Type Department Care Team (Late st Contact Info) Description 06/29/2022 Refill [facility] - Family Medicine [facility] [address] [place] [address] Jet Beck MD [address] [address] Medication Refill Social History Tobacco Use Types [...] documented as of this encounter Care Teams Wool Washer Relationship Specialty Start Date End Date Jim Archer DO [address] [facility] [place], [place] [id number] PCP - General Internal Medicine 03/18/22 documented as of this encounter
[2024-09-19 07:47] VITALS: BP 113/79; PULSE 80; RESP 16; TEMP 35.9; O2SAT 95
[2024-09-19] MEDS: LACTATED RINGERS 1,000 ML 150 ML IV CONT (07:59)
[2024-09-19 08:02] LABS: Glucose Point of Care 157 mg/dl (65-105)
--- NOTE | 2024-09-19 08:16 | P.PNAN_ITS ---
Anes - Initial Pre Proc Eval Procedure: Operation Date: 09/19/24 09:00 Proposed Procedures p Colonoscopy - Deng Israel MD Date/Time: 09/19/24 08:16 Surgeon: Deng Israel MD Pre Op Diagnosis: Other fecal abnormalities Patient Data Age: 58 Gender: M Height: 1.8 m Weight: 94.4 kg Last Vital Signs Temp 35.9 C L 09/19/24 07:47 Pulse 80 09/19/24 07:47 Resp 16 09/19/24 07:47 BP 113/79 09/19/24 07:47 Pulse Ox 95 09/19/24 07:47 O2 Del Method Room Air 09/19/24 07:47 Allergies Allergy/AdvReac Type Severity Reaction Status Date / Time clopidogrel Allergy Intermediate bleeding Verified 09/19/24 07:45 metals AdvReac Intermediate bleeding Uncoded 09/19/24 07:45 Home Medications Medication Instructions Recorded Confirmed Type blood sugar diagnostic (Accu-Chek #270 ea 01/24/21 09/02/24 Rx Anny Plus test strips) aspirin 81 mg tablet,delayed 81 mg PO DAILY 12/06/21 09/19/24 History release (Adult Low Dose Aspirin) lisinopril 40 mg tablet 40 mg PO DAILY 12/06/21 09/19/24 History insulin degludec 200 unit/mL (3 60 unit (0.3 mL) subcut DAILY #27 12/29/21 09/19/24 Rx mL) subcutaneous pen (Tresiba mL FlexTouch U-200 insulin) atorvastatin 40 mg tablet 40 mg PO DAILY #90 tabs 02/14/22 09/19/24 Rx famotidine 20 mg tablet 20 mg PO DAILY 02/28/22 09/19/24 History pen needle, diabetic 32 gauge x #100 ea 06/29/22 09/02/24 Rx 1/4 (BD Ultra-Fine Micro Pen Needle) blood-glucose sensor (FreeStyle #1 ea 07/10/22 09/02/24 Rx Dane 3 Sensor device) mecobalamin (vitamin B12) 1,000 1,000 mcg sublingual DAILY 08/11/24 09/19/24 History mcg disintegrating tablet,sublingual metformin 1,000 mg tablet 1,000 mg PO BID 08/11/24 09/19/24 History metoprolol tartrate 100 mg tablet 100 mg PO BID 08/11/24 09/19/24 History tirzepatide 10 mg/0.5 mL 10 mg subcut WEEKLY 08/11/24 09/15/24 History subcutaneous pen injector (Mounjaro) Laboratory Tests 09/19/24 07:57 POC Capillary Glucose 157 H mg/dl (65-105) Patient hx anesthesia problems: none Family hx anesthesia problems: none Results Review: All pre-operative results and documents have been reviewed as part of the pre- operative evaluation. [facility] Past Medical History Medical History Hx of supraventricular tachycardia Peripheral circulatory disorder associated with type 2 diabetes mellitus Surgical History Surgical History H/O major cardiovascular surgery Stent placed behind left knee Family History Family History Mother Patient's mother is , Onset Age: 69 Diabetes mellitus Hypertension Father Patient's father is , Onset Age: 59 Social History Social History Smoking status: Former smoker Second hand tobacco smoke exposure: No Smoking end date: 10/23/10 Alcohol intake: former Substance use type: does not use Do You Feel Safe in your Home?: Yes Lack of Transportation: No Lack of Food: Never True Current Housing: I Have Housing Concerned About Future Housing: No Difficulty Paying Gas/Electric Bills: No Difficulty Paying for Meds: No Currently Unemployed: No Education: Bachelor's Degree Difficulty w/ Childcare or Family Care: No Living arrangements: alone Additional occupation/education comments: Employed F/T Gender identity (if verbalized by the patient): Male Spiritual care concerns: No Anes - Eval Final PreProcedure Day of Procedure 09/19/24 08:16 Patient weight: obese Heart: regular rate and rhythm Lungs: clear to auscultation Airway: Mallampati scale class II Neurological: alert and oriented Last oral intake: >/= 8 hours ASA classification: III Emergent: no Anesthetic plan: proceed Anesthesia type and monitoring: general GIVS and standard monitoring Results Review: All pre-operative results and documents have been reviewed as part of the pre- operative evaluation. Informed Consent: The patient's anesthetic plan and its attendant risks and benefits were discussed with the patient/family/POA. Questions were solicited and answers provided to the satisfaction of the patient/family/POA.
--- NOTE | 2024-09-19 08:51 | PM.HPGS ---
History of Present Illness History of Present Illness Consent: Risks, benefits, and alternatives have been discussed and questions answered. Patient agrees to proceed with procedure. Chief complaint: Other fecal abnormalities Narrative: Rahul Roberts III is a 58 year old male here for first colonoscopy, had + cologuard Review of Systems Review of Systems: All systems reviewed & are unremarkable except as noted in HPI and below PMFSH Past Medical History Medical History Hx of supraventricular tachycardia Peripheral circulatory disorder associated with type 2 diabetes mellitus Surgical History Surgical History H/O major cardiovascular surgery Stent placed behind left knee Family History Family History Mother Patient's mother is , Onset Age: 69 Diabetes mellitus Hypertension Father Patient's father is , Onset Age: 59 Social History Social History Smoking status: Former smoker Second hand tobacco smoke exposure: No Smoking end date: 10/23/10 Alcohol intake: former Substance use type: does not use Do You Feel Safe in your Home?: Yes Lack of Transportation: No Lack of Food: Never True Current Housing: I Have Housing Concerned About Future Housing: No Difficulty Paying Gas/Electric Bills: No Difficulty Paying for Meds: No Currently Unemployed: No Education: Bachelor's Degree Difficulty w/ Childcare or Family Care: No Living arrangements: alone Additional occupation/education comments: Employed F/T Gender identity (if verbalized by the patient): Male Spiritual care concerns: No Meds Home Medications and Allergies Home Medications Medication Instructions Recorded Confirmed Type blood sugar diagnostic (Accu-Chek #270 ea 01/24/21 09/02/24 Rx Anny Plus test strips) aspirin 81 mg tablet,delayed 81 mg PO DAILY 12/06/21 09/19/24 History release (Adult Low Dose Aspirin) lisinopril 40 mg tablet 40 mg PO DAILY 12/06/21 09/19/24 History insulin degludec 200 unit/mL (3 60 unit (0.3 mL) subcut DAILY #27 12/29/21 09/19/24 Rx mL) subcutaneous pen (Tresiba mL FlexTouch U-200 insulin) atorvastatin 40 mg tablet 40 mg PO DAILY #90 tabs 02/14/22 09/19/24 Rx famotidine 20 mg tablet 20 mg PO DAILY 02/28/22 09/19/24 History pen needle, diabetic 32 gauge x #100 ea 06/29/22 09/02/24 Rx 1/4 (BD Ultra-Fine Micro Pen Needle) blood-glucose sensor (FreeStyle #1 ea 07/10/22 09/02/24 Rx Dane 3 Sensor device) mecobalamin (vitamin B12) 1,000 1,000 mcg sublingual DAILY 08/11/24 09/19/24 History mcg disintegrating tablet,sublingual metformin 1,000 mg tablet 1,000 mg PO BID 08/11/24 09/19/24 History metoprolol tartrate 100 mg tablet 100 mg PO BID 08/11/24 09/19/24 History tirzepatide 10 mg/0.5 mL 10 mg subcut WEEKLY 08/11/24 09/15/24 History subcutaneous pen injector (Mackenzie) Allergies Allergy/AdvReac Type Severity Reaction Status Date / Time clopidogrel Allergy Intermediate bleeding Verified 09/19/24 07:45 metals AdvReac Intermediate bleeding Uncoded 09/19/24 07:45 Vital Signs Vital Signs - 24 hr 09/19/24 07:47 Temperature 96.7 F L Pulse Rate 80 Respiratory Rate 16 Blood Pressure 113/79 Pulse Oximetry 95 Oxygen Delivery Room Air Exam Const: General: comfortable and no acute distress HENMT: Face/Nose/Sinus: Normal nares present Eyes: General: appearance normal, both eyes and all related structures Neck: Neck: no JVD Resp: Auscultation: clear to auscultation bilaterally Cardio: Rate: regular rate Rhythm: regular rhythm GI: Inspection: non-distended GI Palp: Yes Soft to palpation Skin: General skin exam: normal color Neuro: Speech: normal speech Extrem: General: normal to inspection Psych: Mental Status: mental status grossly normal Assessment and Plan Assessment and plan (1) Positive colorectal cancer screening using Cologuard test: Code(s): R19.5 - Other fecal abnormalities Status: Acute Assessment and Plan: colonoscopy
[2024-09-19 09:07] VITALS: BP 95/60; PULSE 75; RESP 20; O2SAT 94
[2024-09-19 09:17] VITALS: BP 88/56; PULSE 68; RESP 19; O2SAT 96
[2024-09-19 09:27] VITALS: BP 113/70; PULSE 66; RESP 19
--- NOTE | 2024-09-19 09:40 | SUR.PHASEII ---
AWAITING RIDE. PT DRESSED READY TO GO HOME.
== END 2024-09-19 10:25 | disposition home or self-care (01) ==
PROVIDERS: PCP Nurse Practitioner Adult Health; Referring Provider Nurse Practitioner Adult Health; Visit Provider Internal Medicine Gastroenterology
PROC: 0DJD8ZZ Inspection of Lower Intestinal Tract, Via Natural or Artificial Opening Endoscopic (ICD-10-PCS; CPT 45378; principal; 2024-09-19 09:00)
DX: Z12.11 Encounter for screening for malignant neoplasm of colon (principal); D12.2 Benign neoplasm of ascending colon; D12.3 Benign neoplasm of transverse colon; D12.5 Benign neoplasm of sigmoid colon; I47.10 Supraventricular tachycardia, unspecified; E11.51 Type 2 diabetes mellitus with diabetic peripheral angiopathy without gangrene; E66.9 Obesity, unspecified; Z68.29 Body mass index [BMI] 29.0-29.9, adult; Z79.82 Long term (current) use of aspirin; Z79.4 Long term (current) use of insulin; Z79.84 Long term (current) use of oral hypoglycemic drugs; Z79.85 Long-term (current) use of injectable non-insulin antidiabetic drugs; Z98.890 Other specified postprocedural states; Z95.828 Presence of other vascular implants and grafts; Z87.891 Personal history of nicotine dependence; Z86.79 Personal history of other diseases of the circulatory system
CPT/HCPCS: 45385; 82948; 88305; J2704; J7120